=== PATIENT | female | born 1995 | race Two or more races ===

== ENCOUNTER 2024-06-10 20:59 | Emergency (ER) | payer OTHER ==
[~2024-06-10] VITALS: Ht 157.5 cm; Wt 86.4 kg
[2024-06-10 21:16] VITALS: BP 131/63; PULSE 136; RESP 18; TEMP 98.1
[2024-06-10] MEDS ORDERED: ESCI-8 PO (21:28)
[2024-06-10] MEDS ORDERED: HYDR-4808 PO (21:28)
[2024-06-10] MEDS ORDERED: OLAN5TAB52 PO (21:28)
[2024-06-10] MEDS ORDERED: BUPR-344 PO (21:28)
== END 2024-06-10 21:30 | disposition left against medical advice (07) ==
LOC: EMS 21:04
DX: M79.645 Pain in left finger(s) (principal); F41.9 Anxiety disorder, unspecified; F31.9 Bipolar disorder, unspecified; F10.90 Alcohol use, unspecified, uncomplicated; Z53.21 Procedure and treatment not carried out due to patient leaving prior to being seen by health care provider; Y90.9 Presence of alcohol in blood, level not specified